=== PATIENT | female | born 1980 | race Caucasian/White ===

== ENCOUNTER 2019-09-01 20:19 | Emergency (ER) | payer MEDICAID ==
[~2019-09-01] VITALS: Ht 170.2 cm; Wt 138.3 kg
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
[2019-09-01] MEDS ORDERED: LORAZEPAM INJ 2 MG/ML VIAL ONE (20:44)
[2019-09-01 20:53] LABS: BASOPHILS # (AUTO) 0.1 /CMM (0.0-0.2); BASOPHILS % (AUTO) 2.2 % (0.0-2.0); EOSINOPHILS % (AUTO) 0.7 % (0.0-6.0); HEMATOCRIT 42 % (33-45); HEMOGLOBIN 13.4 g/dL (11.5-14.8); LYMPHOCYTES # (AUTO) 1.5 /CMM (0.8-4.8); LYMPHOCYTES % (AUTO) 29.5 % (20.0-44.0); MEAN CORPUSCULAR HGB CONC 32 g/dl (31.0-36.0); MEAN CORPUSCULAR VOLUME 91 fL (82-100); MONOCYTES # (AUTO) 0.4 /CMM (0.1-1.30); MONOCYTES % (AUTO) 7.9 % (2.0-12.0); NEUTROPHILS % (AUTO) 59.7 % (43.0-81.0); PLATELET COUNT (AUTO) 351 /CMM (150-450); RED BLOOD CELL COUNT(AUTO) 4.59 MIL/uL (4.0-5.2); WHITE BLOOD COUNT (AUTO) 5.1 K/uL (4.3-11.0)
[2019-09-01 21:00] LABS: CALCIUM, SERUM 8.7 mg/dL (8.5-10.1); CARBON DIOXIDE 25 mmol/L (21-32); CHLORIDE 104 mmol/L (98-107); CREATININE 0.9 mg/dL (0.6-1.3); GLUCOSE 100 mg/dL (74-106); POTASSIUM 3.8 mmol/L (3.5-5.1); SODIUM SERUM 142 mmol/L (136-145); UREA NITROGEN, BLOOD 9 mg/dL (7-18)
[2019-09-01] MEDS ORDERED: LORAZEPAM INJ 2 MG/ML VIAL IV ONE ×2 (21:00→23:00)
[2019-09-01] MEDS ORDERED: IOHEXOL-350 100 ML VIAL IV ONE (21:13)
[2019-09-01] MEDS ORDERED: IV NS 0.9% 250 ML IV ONE (21:13)
[2019-09-01] MEDS ORDERED: CT SWABBABLE VALVE TRANS SET 1 EA INFUS.SET MC ONE (21:13)
--- NOTE | 2019-09-01 21:20 | NUR ---
PT TAKEN TO CT VIA [facility]
--- NOTE | 2019-09-01 21:23 | NUR ---
REPORT CALLED TO [facility] #[id number].
[2019-09-01] MEDS ORDERED: ALBUTEROL FS 2.5 MG/3 ML VIAL.NEB NEB ONE (21:30)
[2019-09-01] MEDS ORDERED: HYDROCODONE BIT/HOMATROPINE 5 ML UDC PO ONE (21:30)
[2019-09-01] MEDS ORDERED: IPRATROPIUM NEB FS 0.5 MG/2.5 ML AMPUL.NEB NEB ONE (21:30)
--- NOTE | 2019-09-01 21:36 | NUR ---
PT BACK FROM CT
--- NOTE | 2019-09-01 21:40 | NUR ---
[employer] OFF[employer]ERS AT BEDSIDE TALKING TO PT.
--- NOTE | 2019-09-01 21:58 | NUR ---
[employer] AT BEDSIDE
--- NOTE | 2019-09-01 23:23 | NUR ---
IV removed. Catheter intact and site benign. Pressure and 4x4 applied to site. No bleeding noted.Patient discharged to home in stable condition. Written and verbal after care instructions given. Patient verbalizes understanding of instruction.
--- NOTE | 2019-09-01 23:24 | NUR ---
PT RESTING COMFORTABLY IN BED. NO COMPLAINTS AT THIS TIME. VSS. WILL CONT TO MONITOR.
[2019-09-01 23:25] VITALS: BP 154/88
== END 2019-09-01 23:25 | disposition home or self-care (01) ==
LOC: ER 20:20
DX: R06.82 Tachypnea, not elsewhere classified (principal); R00.0 Tachycardia, unspecified; F10.10 Alcohol abuse, uncomplicated; F41.9 Anxiety disorder, unspecified; Y90.9 Presence of alcohol in blood, level not specified
CPT/HCPCS: 36415; 71275; 80048; 84484; 85025; 93005 ×2; 96374; 99285; J2060; J7030; J7050; Q9967

== ENCOUNTER 2020-08-25 20:56 | Emergency (ER) | payer SELFPAY ==
[~2020-08-25] VITALS: Ht 170.2 cm; Wt 138.3 kg
--- NOTE | 2020-08-25 20:59 | NUR ---
PT AAOX4. [id number] FROM HOME FOR ETOH. UPON ASSESSMENT PT APPEARS TO BE ANXIOUS AND STATING SHE HAS SOB. ON MONITOR PT SAT 99%, NO ACUTE DISTRESS NOTED. PT IS TACHY AROUND 113. NO ACUTE DISTRESS NOTED. PT AMBULATORY WITH STEADY GAIT. AWAITING MD FOR EVAL AND ORDERS.
--- NOTE | 2020-08-25 21:28 | NUR ---
LINE ESTABLISHED LAC 18G, BLOOD WORK COLLECTED, SENT TO LAB.
[2020-08-25] MEDS ORDERED: IV NS 0.9% 1,000 ML BAG IV ONE ×2 (21:30→23:30)
--- NOTE | 2020-08-25 21:31 | NUR ---
URINE COLLECTED, SENT TO LAB
--- NOTE | 2020-08-25 21:31 | NUR ---
PT REFUSED XRAY, STATED SHE MIGHT BE . WILL COLLECT URINE SAMPLE FOR TEST.
[2020-08-25 21:36] LABS: BASOPHILS % (AUTO) 0.4 % (0.0-2.0); EOSINOPHILS % (AUTO) 2.8 % (0.0-6.0); HEMATOCRIT 46 % (33-45); HEMOGLOBIN 14.9 g/dL (11.5-14.8); LYMPHOCYTES # (AUTO) 2.4 /CMM (0.8-4.8); LYMPHOCYTES % (AUTO) 53.6 % (20.0-44.0); MEAN CORPUSCULAR HGB CONC 32 g/dl (31.0-36.0); MEAN CORPUSCULAR VOLUME 89 fL (82-100); MONOCYTES # (AUTO) 0.3 /CMM (0.1-1.30); MONOCYTES % (AUTO) 6.8 % (2.0-12.0); NEUTROPHILS # (AUTO) 1.6 /CMM (1.8-8.9); NEUTROPHILS % (AUTO) 36.4 % (43.0-81.0); PLATELET COUNT (AUTO) 128 /CMM (150-450); RED BLOOD CELL COUNT(AUTO) 5.17 MIL/uL (4.0-5.2); WHITE BLOOD COUNT (AUTO) 4.5 K/uL (4.3-11.0)
[2020-08-25 21:40] LABS: BILIRUBIN,URINE Negative (NEGATIVE); LEUKOCYTE ESTERASE ,URINE Trace (NEGATIVE); NITRITE, URINE Negative (NEGATIVE); PROTEIN,URINE >=300 mg/dl (NEGATIVE); UGLUCOSE Negative (NEGATIVE)
--- NOTE | 2020-08-25 21:42 | NUR ---
PT BECAME ANXIOUS AND STARTED TO C/O SOB. PT SAT 98% ON ROOM AIR, WAS PLACED ON 2L NC. NO ACUTE DISTRESS NOTED. VITALS STABLE.
[2020-08-25 21:43] LABS: COLOR,URINE YELLOW (YELLOW)
[2020-08-25 21:51] LABS: CALCIUM, SERUM 8.2 mg/dL (8.5-10.1); CREATININE 0.8 mg/dL (0.6-1.3); POTASSIUM 3.8 mmol/L (3.5-5.1)
--- NOTE | 2020-08-25 21:57 | NUR ---
RADIOLOGY AT BEDSIDE
[2020-08-25 21:59] LABS: ALBUMIN 3.8 g/dL (3.4-5.0); BILIRUBIN,DIRECT 0.1 mg/dL (0.0-0.2); BILIRUBIN,TOTAL 0.3 mg/dL (0.2-1.0)
[2020-08-25 22:05] LABS: WBC,URINE 0-2 /HPF (0-3)
[2020-08-25 22:07] LABS: BACTERIA,URINE Few /HPF (None Seen); SPERM,URINE Few /HPF (None Seen)
--- NOTE | 2020-08-26 01:32 | NUR ---
PT AAOX4. AMBULATORY WITH STEADY GAIT. REQUESTED TO BE PICKED UP BY FATHER. ER AWARE. DENIES SI AND HI. VSS.
--- NOTE | 2020-08-26 01:36 | NUR ---
IV removed. Catheter intact and site benign. Pressure and 4x4 applied to site. No bleeding noted.
--- NOTE | 2020-08-26 01:37 | NUR ---
Maritza smith in [facility] - 08/26/20 at 0137 by DOMENICA BG 135
--- NOTE | 2020-08-26 01:42 | NUR ---
IV removed. Catheter intact and site benign. Pressure and 4x4 applied to site. No bleeding noted. Patient discharged to home in stable condition. Written and verbal after care instructions given. Patient verbalizes understanding of instruction.
[2020-08-26 01:43] VITALS: BP 128/72
== END 2020-08-26 01:43 | disposition home or self-care (01) ==
LOC: ER 20:59
DX: F10.129 Alcohol abuse with intoxication, unspecified (principal); R06.02 Shortness of breath; Y90.8 Blood alcohol level of 240 mg/100 ml or more
CPT/HCPCS: 36415; 71045; 80048; 80076; 80299; 80307; 80320; 81001; 84703; 85025; 96360; 96361; 99284; J7030 ×2; G0480

== ENCOUNTER 2020-11-10 02:28 | Emergency (ER) | payer MEDICAID ==
[~2020-11-10] VITALS: Ht 170.2 cm; Wt 136.1 kg
[2020-11-10 02:40] VITALS: BP 170/86
--- NOTE | 2020-11-10 02:50 | NUR ---
Maritza smith in ED - 11/10/20 at 0301 by JAYDON pt left room. instructed to wait for radiology. risk and benefits explained x3. 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
--- NOTE | 2020-11-10 02:53 | NUR ---
AWAITING FOR XRAY
--- NOTE | 2020-11-10 02:55 | NUR ---
pt left room. instructed to wait for radiology. risk and benefits explained x3. 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
--- NOTE | 2020-11-10 03:00 | NUR ---
radiology to pt room. aware pt stepped out.
--- NOTE | 2020-11-10 03:01 | NUR ---
Patient eloped from facility. ER MD notified.
== END 2020-11-10 03:08 | disposition left against medical advice (07) ==
LOC: ER 02:31
DX: S50.12XA Contusion of left forearm, initial encounter (principal); M25.512 Pain in left shoulder; M25.522 Pain in left elbow; F10.10 Alcohol abuse, uncomplicated; Z88.6 Allergy status to analgesic agent; W10.8XXA Fall (on) (from) other stairs and steps, initial encounter; Y93.89 Activity, other specified; Y92.89 Other specified places as the place of occurrence of the external cause; Y99.8 Other external cause status; Y90.9 Presence of alcohol in blood, level not specified

== ENCOUNTER 2021-10-10 10:05 | Emergency (ER) | payer MEDICAID, OTHER ==
[~2021-10-10] VITALS: Ht 170.2 cm; Wt 145.1 kg
--- NOTE | 2021-10-10 10:17 | NUR ---
BIBS FOR C/O SHARP RIGHT HIP PAIN RADIATING DOWN THE LEG S/P SLIP AND FALL. AAOX4, AMBULATORY, IN PAIN 04/05
--- NOTE | 2021-10-10 10:23 | NUR ---
DR HEBERT AT THE BEDSIDE
--- NOTE | 2021-10-10 11:25 | NUR ---
URINE SAMPLE COLLECTED AND SENT TO LAB.
--- NOTE | 2021-10-10 12:00 | NUR ---
PATIENT SIGN AMA. SIGNED FORM GIVEN TO DR HEBERT.
--- NOTE | 2021-10-10 12:10 | NUR ---
Patient does not wish to proceed with medical care recommended by Dr HEBERT . Patient given information related to possible complications, up to and including , which could occur as a result of leaving the hospital at this time. Patient verbalizes understanding of risks involved due to leaving against medical advice. Patient has signed AMA form.
[2021-10-10] MEDS ORDERED: ACETAMINOPHEN 325 MG TABLET ONE (12:25)
[2021-10-10] MEDS ORDERED: ACETAMINOPHEN 325 MG TABLET PO ONE (12:30)
[2021-10-10 14:21] VITALS: BP 135/98
== END 2021-10-10 12:15 | disposition left against medical advice (07) ==
LOC: ER 10:12
DX: S89.81XA Other specified injuries of right lower leg, initial encounter (principal); M25.551 Pain in right hip; E66.01 Morbid (severe) obesity due to excess calories; Z68.43 Body mass index [BMI] 50.0-59.9, adult; F32.A Depression, unspecified; F41.9 Anxiety disorder, unspecified; Z88.6 Allergy status to analgesic agent; W01.0XXA Fall on same level from slipping, tripping and stumbling without subsequent striking against object, initial encounter; Y93.89 Activity, other specified; Y92.89 Other specified places as the place of occurrence of the external cause; Y99.8 Other external cause status
CPT/HCPCS: 73502; 73552; 73564-TC; 84703-TC

== ENCOUNTER 2023-04-20 01:51 | Emergency (ER) | payer OTHER ==
[~2023-04-20] VITALS: Ht 172.7 cm; Wt 138.3 kg
[2023-04-20] MEDS ORDERED: HYDROCODONE/APAP 5/325MG TABLET ONE (02:19)
[2023-04-20 02:21] VITALS: TEMP 97.9
[2023-04-20] MEDS: HYDROCODONE/APAP 5/325MG TABLET PO ONE (02:34)
[2023-04-20] MEDS ORDERED: ACETAMINOPHEN ES 500 MG TABLET ONE (02:35)
[2023-04-20] MEDS: ACETAMINOPHEN ES 500 MG TABLET PO ONE (02:37)
[2023-04-20 02:48] LABS: APPEARANCE,URINE CLEAR (CLEAR); BILIRUBIN,URINE NEGATIVE (NEGATIVE); BLOOD, URINE NEGATIVE Ery/uL (NEGATIVE); COLOR,URINE YELLOW (YELLOW); KETONES,URINE 1+ mg/dL (NEGATIVE); LEUKOCYTE ESTERASE ,URINE TRACE (NEGATIVE); NITRITE, URINE NEGATIVE (NEGATIVE); PROTEIN,URINE 2+ mg/dl (NEGATIVE); UGLUCOSE NEGATIVE (NEGATIVE); UROBILINOGEN,URINE 0.2 EU/dL (0.2)
[2023-04-20 03:00] LABS: PREGNANCY TEST URINE QUAL NEGATIVE (NEGATIVE)
[2023-04-20 03:12] LABS: ADD URINE CULTURE NO; BACTERIA,URINE 1+ /HPF (None Seen); RBC,URINE NONE SEEN /HPF (0-2)
[2023-04-20 03:13] LABS: MUCUS,URINE Moderate /LPF (None Seen)
[2023-04-20] MEDS ORDERED: NITR100C6 PO (04:17)
[2023-04-20] MEDS ORDERED: NITROFURANTOIN/MONOHYDRATE MACROCRYSTALS 100 MG CAPSULE ONE (04:29)
[2023-04-20] MEDS: NITROFURANTOIN/MONOHYDRATE MACROCRYSTALS 100 MG CAPSULE PO ONE (04:33)
[2023-04-20 04:35] VITALS: BP 135/91; O2SAT 95
== END 2023-04-20 04:35 | disposition home or self-care (01) ==
LOC: MERGE 01:54 → ER 01:54
DX: N39.0 Urinary tract infection, site not specified (principal); F32.A Depression, unspecified; Z88.8 Allergy status to other drugs, medicaments and biological substances
CPT/HCPCS: 76856-TC; 81001; 84703-TC

== ENCOUNTER 2023-05-17 16:05 | Emergency (ER) | payer OTHER ==
[~2023-05-17] VITALS: Ht 172.7 cm; Wt 137.0 kg
[~2023-05-17 16:05] MED LIST: NITR100C6 PO
[2023-05-17 16:30] VITALS: BP 163/96; TEMP 98.4
[2023-05-17 16:36] VITALS: O2SAT 97
== END 2023-05-17 16:37 | disposition left against medical advice (07) ==
LOC: ER 16:34
DX: F10.129 Alcohol abuse with intoxication, unspecified (principal); Z53.21 Procedure and treatment not carried out due to patient leaving prior to being seen by health care provider; Y90.9 Presence of alcohol in blood, level not specified

== ENCOUNTER 2024-02-14 01:31 | Emergency (ER) | payer OTHER ==
[~2024-02-14] VITALS: Ht 170.2 cm; Wt 104.3 kg
[2024-02-14 02:48] LABS: BASOPHILS # (AUTO) 0.1 K/uL (0.0-0.2); BASOPHILS % (AUTO) 1.8 % (0.0-2.0); EOSINOPHILS # (AUTO) 0.2 K/uL (0.0-0.7); EOSINOPHILS % (AUTO) 2.4 % (0.0-6.0); HEMATOCRIT 38 % (33-45); HEMOGLOBIN 11.9 g/dL (11.5-14.8); LYMPHOCYTES % (AUTO) 38.9 % (20.0-44.0); MEAN CORPUSCULAR HEMOGLOBIN 27 PG (26.0-33.0); MEAN CORPUSCULAR HGB CONC 31 g/dl (31.0-36.0); MEAN CORPUSCULAR VOLUME 87 fL (82-100); MONOCYTES # (AUTO) 0.3 K/uL (0.1-1.30); MONOCYTES % (AUTO) 4.3 % (2.0-12.0); NEUTROPHILS % (AUTO) 52.6 % (43.0-81.0); PLATELET COUNT (AUTO) 458 K/uL (150-450); RED BLOOD CELL COUNT(AUTO) 4.34 MIL/uL (4.0-5.2); RED CELL DISTRIBUTION WIDTH 23.1 % (11.5-15.0); WHITE BLOOD COUNT (AUTO) 7.6 K/uL (4.3-11.0)
[2024-02-14 02:57] LABS: APPEARANCE,URINE CLEAR (CLEAR); BILIRUBIN,URINE NEGATIVE (NEGATIVE); BLOOD, URINE NEGATIVE Ery/uL (NEGATIVE); COLOR,URINE YELLOW (YELLOW); KETONES,URINE TRACE mg/dL (NEGATIVE); LEUKOCYTE ESTERASE ,URINE TRACE (NEGATIVE); NITRITE, URINE NEGATIVE (NEGATIVE); PREGNANCY TEST URINE QUAL NEGATIVE (NEGATIVE); PROTEIN,URINE TRACE mg/dl (NEGATIVE); UGLUCOSE NEGATIVE (NEGATIVE); UROBILINOGEN,URINE 0.2 EU/dL (0.2)
[2024-02-14 03:27] LABS: CALCIUM, SERUM 8.6 mg/dL (8.5-10.1); CREATININE 0.7 mg/dL (0.6-1.3); POTASSIUM 3.6 mmol/L (3.5-5.1)
[2024-02-14 03:33] LABS: ADD URINE CULTURE YES; BACTERIA,URINE 3+ /HPF (None Seen); MUCUS,URINE Few /LPF (None Seen); RBC,URINE 0-2 /HPF (0-2)
[2024-02-14 03:34] LABS: ALBUMIN 3.3 g/dL (3.4-5.0); BILIRUBIN,TOTAL 0.3 mg/dL (0.2-1.0); TOTAL PROTEIN, SERUM 7.4 g/dL (6.4-8.2)
[2024-02-14 03:35] LABS: SALICYLATE 1.2 mg/dL (2.8-20.0)
[2024-02-14 03:42] LABS: AMPHETAMINE, URINE NEGATIVE (NEGATIVE); BARBITURATE, URINE NEGATIVE (NEGATIVE); BENZODIAZEPINE, URINE NEGATIVE (NEGATIVE); CANNABINOID, URINE NEGATIVE (NEGATIVE); COCCAINE, URINE NEGATIVE (NEGATIVE); OPIATE, URINE NEGATIVE (NEGATIVE); PHENCYCLIDINE SCREEN,URINE NEGATIVE (NEGATIVE)
[2024-02-14] MEDS: IV NS 0.9% 1,000 ML IV ONE ×2 (04:30→04:57)
[2024-02-14] MEDS ORDERED: NITR100C6 PO (04:48)
[2024-02-14 06:46] VITALS: BP 140/94; TEMP 98.2; O2SAT 100
== END 2024-02-14 06:46 | disposition home or self-care (01) ==
LOC: ER 01:32
DX: N39.0 Urinary tract infection, site not specified (principal); F10.10 Alcohol abuse, uncomplicated; R10.2 Pelvic and perineal pain; F31.9 Bipolar disorder, unspecified; Z79.899 Other long term (current) drug therapy; Z88.5 Allergy status to narcotic agent; Y90.8 Blood alcohol level of 240 mg/100 ml or more
CPT/HCPCS: 99283; 96360; 85025; 87086; 84703; 81001; 36415; 80053; 80143; 80320; 80307; J7030; G0480